=== PATIENT | male | born 1960 | race Asian ===

== ENCOUNTER 2018-09-07 13:44 | Inpatient (IN) | payer BC, OTHER ==
[~2018-09-07] VITALS: Ht 177.8 cm; Wt 74.4 kg
[~2018-09-07 13:44] MED LIST: AMYL-40 PO; CLON0.5T PO; ESCI10TA PO; LISI40TA4 PO; LORA-476 PO; METF500T7 PO; VICES PO
[2018-09-07 13:50] VITALS: BP 158/103
[2018-09-07] MEDS ORDERED: ALUMINUM HYD/MAG/SIMETHICONE 30 ML UDC PO ONE (14:15)
[2018-09-07] MEDS ORDERED: LORazepam 2 MG/ML VIAL IVP ONE ×3 (14:15→19:40)
[2018-09-07] MEDS ORDERED: NACL 0.9% 1,000 ML IV ONE ×2 (14:15)
[2018-09-07] MEDS ORDERED: FAMOTIDINE 20 MG/2 ML VIAL IVP ONE (14:15)
[2018-09-07] MEDS ORDERED: LIDOCAINE VISCOUS 2% 20 ML UDC PO ONE (14:15)
[2018-09-07 14:49] LABS: BASOPHILS # (AUTO) 0.1 K/uL (0.00-0.22); BASOPHILS % (AUTO) 0.5 % (0.0-2.0); EOSINOPHILS % (AUTO) 0.2 % (0.0-4.0); HEMATOCRIT 40.4 % (36-52); HEMOGLOBIN 13.3 g/dL (12.0-18.0); LYMPHOCYTES # (AUTO) 1.5 K/uL (2.0-11.5); LYMPHOCYTES % (AUTO) 15.3 % (20.5-51.1); MEAN CORPUSCULAR HEMOGLOBIN 29 pg (27-31); MEAN CORPUSCULAR HGB CONC 33 g/dL (33-37); MEAN CORPUSCULAR VOLUME 88.2 fL (80-94); MONOCYTES # (AUTO) 0.9 K/uL (0.8-1.0); MONOCYTES % (AUTO) 9.5 % (1.7-9.3); NEUTROPHILS # (AUTO) 7.2 K/uL (1.8-7.7); NEUTROPHILS % (AUTO) 74.5 % (42.2-75.2); PLATELET COUNT (AUTO) 142 K/uL (140-450); RED BLOOD CELL COUNT(AUTO) 4.58 MIL/uL (4.20-6.10); RED CELL DISTRIBUTION WIDTH 17.1 % (11.6-13.7); WHITE BLOOD COUNT (AUTO) 9.6 K/uL (4.8-10.8)
[2018-09-07 15:19] LABS: ANION GAP 17.1 (8-16); CARBON DIOXIDE 28.4 mmol/L (21-32); CREATININE 0.9 mg/dL (0.7-1.3); POTASSIUM 3.5 mmol/L (3.5-5.1)
[2018-09-07 15:25] LABS: ALBUMIN 3.7 g/dL (3.4-5.0); MAGNESIUM 1.2 mg/dL (1.8-2.4); TOTAL BILIRUBIN 0.5 mg/dL (0.0-1.0)
[2018-09-07 15:47] LABS: ACETAMINOPHEN < 0.5 ug/ml (10-30); SALICYLATE < 2.8 mg/dL (2.8-20.0)
[2018-09-07] MEDS ORDERED: MAG SULF 2000 MG/WATER PREMIX 50 ML IV ONE (17:00)
[2018-09-07 17:06] LABS: BARBITURATE, URINE NEG. ng/ml (NEG <=200); BENZODIAZEPINE, URINE POS. ng/mL (NEG <=200); CANNABINOID, URINE NEG. ng/mL (NEG <=50); COCAINE, URINE NEG. ng/mL (NEG <=300); PHENCYCLIDINE SCREEN,URINE NEG. ng/mL (NEG <=25)
[2018-09-07 17:07] LABS: APPEARANCE,URINE CLEAR (CLEAR); BILIRUBIN,URINE NEGATIVE (NEGATIVE); BLOOD, URINE NEGATIVE (NEGATIVE); COLOR,URINE YELLOW (YELLOW); LEUKOCYTE ESTERASE ,URINE NEGATIVE (NEGATIVE); NITRITE, URINE NEGATIVE (NEGATIVE); PH,URINE 7.5 (5.0-9.0); UGLUCOSE NEGATIVE (NEGATIVE)
[2018-09-07] MEDS ORDERED: MORPHINE SULFATE 4 MG/ML SYR IVP ONE (17:20)
[2018-09-07] MEDS ORDERED: PANTOPRAZOLE 40 MG INJ VIAL IVP ONE (17:20)
[2018-09-07] MEDS ORDERED: ONDANSETRON 4 MG/2 ML VIAL IM/IVP PRN (17:45)
[2018-09-07] MEDS ORDERED: ACETAMINOPHEN 325 MG TAB PO PRN (17:45)
[2018-09-07] MEDS ORDERED: DOCUSATE SODIUM 100 MG GELCAP PO PRN (17:45)
[2018-09-07] MEDS ORDERED: MULTIVITAMIN-12 10 ML, THIAMINE 100 MG, MAGNESIUM SULFATE 50% 2,000 MG, FOLIC ACID 1 MG... IV SCH ×10 (17:45→20:00)
[2018-09-07] MEDS ORDERED: LORazepam 2 MG/ML VIAL IM/IVP PRN (17:45)
[2018-09-07 17:49] LABS: OPIATE, URINE NEG. ng/mL (NEG <=2000)
[2018-09-07 18:48] LABS: PROTHROMBIN TIME 11.7 secs (10.8-13.4)
[2018-09-07 18:57] LABS: MAGNESIUM 1.2 mg/dL (1.8-2.4); PHOSPHORUS 3.8 mg/dL (2.5-4.9); THYROID STIMULATING HORMONE 0.65 uIU/mL (0.34-3.74)
[2018-09-07 21:40] VITALS: BP 188/108
[2018-09-07] MEDS: HYDROcodone/APAP 5/325 MG 1 TAB TAB PO PRN (22:18)
[2018-09-07] MEDS ORDERED: MECLIZINE 25 MG TAB PO PRN (22:20)
[2018-09-07] MEDS ORDERED: DEXTROSE 50% 50 ML SYR IVP PRN (22:20)
[2018-09-07] MEDS ORDERED: LIDOCAINE VISCOUS 2% 20 ML UDC PO SCH (23:00)
[2018-09-07] MEDS ORDERED: LISINOPRIL 20 MG TAB PO SCH (23:00)
[2018-09-07] MEDS ORDERED: DICYCLOMINE HCL LIQUID 10 MG/5 ML UDC PO SCH (23:00)
[2018-09-07] MEDS ORDERED: ALUMINUM HYD/MAG/SIMETHICONE 30 ML UDC PO SCH (23:00)
[2018-09-07] MEDS ORDERED: METOPROLOL 25 MG TAB PO SCH (23:00)
[2018-09-07] MEDS: DEXT 5% /NACL 0.9% 1,000 ML IV SCH (23:00)
[2018-09-08] VITALS: BP 177/96
[2018-09-08] MEDS ORDERED: ZOLPIDEM 5 MG TAB PO PRN ×2 (01:15→15:35)
[2018-09-08] MEDS ORDERED: MORPHINE SULFATE 4 MG/ML SYR IVP SCH (01:30)
[2018-09-08] MEDS ORDERED: hydrALAZINE 20 MG/ML VIAL IVP SCH (01:30)
[2018-09-08 04:00] VITALS: BP 152/108
[2018-09-08] MEDS: HYDROcodone/APAP 5/325 MG 1 TAB TAB PO PRN ×2 (04:08→20:28)
[2018-09-08] MEDS: INSULIN LISPRO SLIDING SCALE 100 UNITS/ML VIAL SUBQ PRN ×3 (06:02→20:57)
[2018-09-08] MEDS: BLOOD GLUCOSE MONITORING 1 DEV DEV FS SCH ×4 (06:02→20:56)
[2018-09-08 06:47] LABS: BASOPHILS % (AUTO) 0.6 % (0.0-2.0); EOSINOPHILS % (AUTO) 0.1 % (0.0-4.0); HEMOGLOBIN 10.8 g/dL (12.0-18.0); LYMPHOCYTES # (AUTO) 0.8 K/uL (2.0-11.5); LYMPHOCYTES % (AUTO) 15.3 % (20.5-51.1); MEAN CORPUSCULAR HEMOGLOBIN 30 pg (27-31); MEAN CORPUSCULAR HGB CONC 34 g/dL (33-37); MEAN CORPUSCULAR VOLUME 87.7 fL (80-94); MONOCYTES # (AUTO) 0.5 K/uL (0.8-1.0); MONOCYTES % (AUTO) 10.1 % (1.7-9.3); NEUTROPHILS # (AUTO) 3.6 K/uL (1.8-7.7); NEUTROPHILS % (AUTO) 73.9 % (42.2-75.2); PLATELET COUNT (AUTO) 74 K/uL (140-450); RED BLOOD CELL COUNT(AUTO) 3.65 MIL/uL (4.20-6.10); RED CELL DISTRIBUTION WIDTH 16.8 % (11.6-13.7); WHITE BLOOD COUNT (AUTO) 4.9 K/uL (4.8-10.8)
[2018-09-08 07:11] LABS: CHOL/HDL RATIO 1.7 (1-4.5)
[2018-09-08] MEDS: DEXT 5% /NACL 0.9% 1,000 ML IV SCH (07:20)
[2018-09-08] MEDS ORDERED: metFORMIN 500 MG TAB PO SCH (08:00)
[2018-09-08 08:03] VITALS: BP 165/92
[2018-09-08 08:29] LABS: ANION GAP 14.1 (8-16); CREATININE 0.8 mg/dL (0.7-1.3); POTASSIUM 3.1 mmol/L (3.5-5.1)
[2018-09-08 08:32] LABS: MAGNESIUM 1.6 mg/dL (1.8-2.4); PHOSPHORUS 1.8 mg/dL (2.5-4.9)
[2018-09-08] MEDS ORDERED: MULTIVITAMIN 1 TAB PO SCH (09:00)
[2018-09-08] MEDS ORDERED: FOLIC ACID 1 MG TAB PO SCH (09:00)
[2018-09-08] MEDS ORDERED: clonazePAM 0.5 MG TAB PO SCH (09:00)
[2018-09-08] MEDS ORDERED: THIAMINE 200 MG/2 ML VIAL IM SCH (09:00)
[2018-09-08] MEDS ORDERED: LISINOPRIL 20 MG TAB PO SCH (09:00)
[2018-09-08] MEDS: chlordiazePOXIDE 25 MG CAP PO SCH ×3 (09:12→17:59)
[2018-09-08] MEDS: POTASSIUM CHL 20 MEQ/ 1/2 NS 1,000 ML IV SCH ×2 (11:12→23:40)
[2018-09-08 12:00] VITALS: BP 152/95
[2018-09-08] MEDS: LORazepam 2 MG/ML VIAL IM/IVP PRN ×2 (15:57→20:28)
[2018-09-08 16:00] VITALS: BP 151/98
[2018-09-08 20:00] VITALS: BP 175/105
[2018-09-08] MEDS ORDERED: cloNIDine 0.1 MG TAB PO SCH (21:00)
[2018-09-08] MEDS ORDERED: ESCITALOPRAM 20 MG TAB PO SCH (21:00)
[2018-09-08] MEDS ORDERED: ZOLPIDEM 5 MG TAB PO SCH (21:00)
[2018-09-09] VITALS: BP 134/94
[2018-09-09] MEDS: LORazepam 2 MG/ML VIAL IM/IVP PRN ×2 (00:35→03:30)
[2018-09-09 04:00] VITALS: BP 148/103
[2018-09-09] MEDS ORDERED: LORazepam 2 MG/ML VIAL IM/IVP PRN (04:10)
[2018-09-09] MEDS: INSULIN LISPRO SLIDING SCALE 100 UNITS/ML VIAL SUBQ PRN (05:12)
[2018-09-09] MEDS: BLOOD GLUCOSE MONITORING 1 DEV DEV FS SCH (05:13)
[2018-09-09 07:46] LABS: BASOPHILS % (AUTO) 0.2 % (0.0-2.0); EOSINOPHILS # (AUTO) 0.1 K/uL (0-0.4); EOSINOPHILS % (AUTO) 0.7 % (0.0-4.0); HEMATOCRIT 35.3 % (36-52); HEMOGLOBIN 11.9 g/dL (12.0-18.0); LYMPHOCYTES # (AUTO) 0.9 K/uL (2.0-11.5); LYMPHOCYTES % (AUTO) 12.1 % (20.5-51.1); MEAN CORPUSCULAR HEMOGLOBIN 30 pg (27-31); MEAN CORPUSCULAR HGB CONC 34 g/dL (33-37); MEAN CORPUSCULAR VOLUME 88.3 fL (80-94); MONOCYTES # (AUTO) 0.4 K/uL (0.8-1.0); MONOCYTES % (AUTO) 5.6 % (1.7-9.3); NEUTROPHILS # (AUTO) 5.9 K/uL (1.8-7.7); NEUTROPHILS % (AUTO) 81.4 % (42.2-75.2); PLATELET COUNT (AUTO) 75 K/uL (140-450); RED CELL DISTRIBUTION WIDTH 16.6 % (11.6-13.7); WHITE BLOOD COUNT (AUTO) 7.3 K/uL (4.8-10.8)
[2018-09-09 08:10] LABS: ANION GAP 12.7 (8-16); CARBON DIOXIDE 25.7 mmol/L (21-32); CREATININE 0.8 mg/dL (0.7-1.3); POTASSIUM 3.4 mmol/L (3.5-5.1)
[2018-09-09 08:14] LABS: MAGNESIUM 1.3 mg/dL (1.8-2.4); PHOSPHORUS 1.2 mg/dL (2.5-4.9)
[2018-09-09] MEDS ORDERED: LACTULOSE 20 GM/30 ML UDC PO SCH (09:00)
[2018-09-09] MEDS ORDERED: PANTOPRAZOLE 40 MG INJ VIAL IVP SCH (09:00)
[2018-09-09] MEDS ORDERED: chlordiazePOXIDE 25 MG CAP PO SCH (09:00)
[2018-09-09] MEDS ORDERED: LISINOPRIL 20 MG TAB PO SCH (09:00)
[2018-09-09] MEDS ORDERED: POTASSIUM CHLORIDE 20% 40 MEQ/15 ML UDC GT SCH (09:00)
[2018-09-09 09:06] LABS: HEPATITIS A ANTIBODY IGM Negative (Negative); HEPATITIS B CORE AB TOTAL Positive (Negative); HEPATITIS B SURFACE ANTIBODY Non Reactive (.); HEPATITIS B SURFACE ANTIGEN Negative (Negative)
== END 2018-09-09 06:45 | disposition left against medical advice (07) | DRG 241 ==
LOC: MED 13:44 → MTU 19:11
PROVIDERS: ADMIT General Practice; ATTEND General Practice
DX: K29.70 Gastritis, unspecified, without bleeding (principal); G92 Toxic encephalopathy; D68.9 Coagulation defect, unspecified; E83.42 Hypomagnesemia; E83.39 Other disorders of phosphorus metabolism; E87.1 Hypo-osmolality and hyponatremia; F10.239 Alcohol dependence with withdrawal, unspecified; K21.9 Gastro-esophageal reflux disease without esophagitis; K70.0 Alcoholic fatty liver; E11.9 Type 2 diabetes mellitus without complications; T51.91XA Toxic effect of unspecified alcohol, accidental (unintentional), initial encounter; I10 Essential (primary) hypertension; Z53.21 Procedure and treatment not carried out due to patient leaving prior to being seen by health care provider; F41.9 Anxiety disorder, unspecified; Y90.8 Blood alcohol level of 240 mg/100 ml or more; K20.9 Esophagitis, unspecified; R74.0 Nonspecific elevation of levels of transaminase and lactic acid dehydrogenase [LDH]; I25.10 Atherosclerotic heart disease of native coronary artery without angina pectoris; N40.0 Benign prostatic hyperplasia without lower urinary tract symptoms; F32.9 Major depressive disorder, single episode, unspecified; E87.6 Hypokalemia; Y92.89 Other specified places as the place of occurrence of the external cause; Z79.84 Long term (current) use of oral hypoglycemic drugs; Z79.899 Other long term (current) drug therapy; Z90.49 Acquired absence of other specified parts of digestive tract
CPT/HCPCS: 36415; 70450; 71045; 80048; 80053; 80305; 81003; 82140; 82948; 83036; 83690; 83735; 83880; 84100; 84134; 84443; 84484; 85025; 85610; 85730; 86704; 86706; 86708; 86709; 86803; 87081; 87340; 93005; 93880; 93925; 93970; 96365; 96366; 96367; 96375; 96376; 97110; 99285; A9153; C9113; G0480; G0482; J0360; J1815; J2060; J2270; J3411; J3475; J3480; J3490; J7030; J7042; Q0092; Q9967